=== PATIENT | female | born 1980 | race Caucasian/White ===

== ENCOUNTER 2019-01-02 09:04 | Emergency (ER) | payer MEDICAID ==
[~2019-01-02] VITALS: Ht 157.5 cm; Wt 79.7 kg
[~2019-01-02 09:04] MED LIST: PREN-39 PO
[2019-01-02 09:07] VITALS: BP 118/63; PULSE 68; RESP 18; Ht 157.5 cm; Wt 79.7 kg
[2019-01-02] MEDS ORDERED: KETOROLAC 60 MG INJ IM STA (09:23)
[2019-01-02] MEDS ORDERED: HYDR-4011 PO (10:45)
[2019-01-02] MEDS ORDERED: NAPR-985 PO (10:45)
--- NOTE | 2019-01-02 13:03 | ERD ---
ER Documentation Chief Complaint Chief Complaint NECK PAIN HPI 38-year-old female presenting with neck pain after and back pain. Patient slipped and fell yesterday. She has not taken medications for symptoms. She denies any numbness or tingling. She denies denies head injury or loss of conscious. Denies vomiting. Denies medical problems. NKDA. Surgical history . Social history denies ROS All systems reviewed and are negative except as per history of present illness. Medications Home Meds Active Scripts Naproxen* (Naprosyn*) 500 Mg Tablet, 500 MG PO BID PRN for PAIN AND/OR INFLAMMATION, #30 TAB Prov:MARYAM ARNDT PA-C 01/02/19 Hydrocodone/Acetaminophen ([place] 5-325 Tablet) 1 Each Tablet, 1 TAB PO Q6H PRN for PAIN, #7 TAB Prov:MARYAM ARNDT PA-C 01/02/19 Reported Medications Vits W-Ca,Fe,Fa(<1MG) ( Vitamins) 1 Tab Tablet, 1 TAB PO DAILY 08/30/14 Allergies Allergies: Coded Allergies: No Known Drug Allergies (Verified Allergy, Mild, 01/02/19) PMhx/Soc Medical and Surgical Hx: pt denies Medical Hx History of Surgery: Yes (C/S) Anesthesia Reaction: No Hx Neurological Disorder: No Hx Respiratory Disorders: No Hx Cardiac Disorders: No Hx Psychiatric Problems: No Hx Miscellaneous Medical Probl: No Hx Alcohol Use: No Hx Substance Use: No Hx Tobacco Use: No Smoking Status: Never smoker FmHx Family History: No diabetes, No coronary disease, No other Physical Exam Vitals Vital Signs Date Temp Pulse Resp B/P (MAP) Pulse Ox O2 O2 Flow FiO2 Time Delivery Rate 01/02/19 98.2 68 18 118/63 99 09:07 (81) Physical Exam GENERAL: The patient is well-appearing, well-nourished, in no acute distress HEENT: Atraumatic. Conjunctivae are pink. Pupils equal, round, and reactive to light. There is no scleral icterus. Tympanic membranes clear bilaterally. Oropharynx clear. NECK: C-spine is soft and supple. There is no meningismus. There is no cervical lymphadenopathy. CHEST: Clear to auscultation bilaterally. There are no rales, wheezes or rhonchi. HEART: Regular rate and rhythm. No murmurs, clicks, rubs or gallops. ABDOMEN:Soft, nontender and nondistended. Good bowel sounds. No rebound or guarding. No gross peritonitis. No gross organomegaly or masses. BACK: Tender to palpation along cervical, thoracic and lumbar spine. No bony step-offs felt. SKIN: No abrasions or lacerations Results 24 hrs Laboratory Tests Test 01/02/19 09:29 POC Beta HCG, Qualitative NEGATIVE Current Medications Medications Dose Sig/Mariah Start Time Status Last (Trade) Ordered Route PRN Stop Time Admin Dose Reason Admin Ketorolac 60 mg ONCE STAT 01/02/19 DC 01/02/19 Tromethamine IM 09:23 09:34 (Toradol) 01/02/19 09:25 Procedures/MDM DIAGNOSTIC IMAGING REPORT Patient: DEEDEE NEUMANN : 1980 Age: 38 Sex: F MR #: [id number] DOS: 01/02/19922 Ordering MD: JASON ARNDT PA-C Location: [facility] Room/Bed: PROCEDURE: XR Cervical Spine. CLINICAL INDICATION: Fall. Neck pain TECHNIQUE: Three views of the cervical spine were performed. The images were reviewed on a PACS workstation. COMPARISON: None. FINDINGS: There is straightening of the normal cervical lordosis. There is no acute fracture or dislocation. The vertebral body heights and disc spaces are preserved. There is no significant paraspinal soft tissue swelling. IMPRESSION: 1. No acute fracture or traumatic subluxation. If there is high clinical suspicion for traumatic injury, further evaluation with CT should be considered. 2. Straightening of the normal cervical lordosis. DIAGNOSTIC IMAGING REPORT Patient: DEEDEE NEUMANN : 1980 Age: 38 Sex: F MR #: [id number] DOS: 01/02/19922 Ordering MD: JASON ARNDT PA-C Location: [facility] Room/Bed: PROCEDURE: XR Lumbar Spine. CLINICAL INDICATION: Fall, back pain TECHNIQUE: AP, cone-down lateral, and lateral views of the lumbar spine were obtained. COMPARISON: None. FINDINGS: No fracture is identified. The vertebral bodies are maintained in height. There is preservation of the lordosis of the lumbar spine. Alignment is intact. Mild anterior osteophytes/calcifications are seen at the L1-2 level. There is mild - moderate disc space narrowing posteriorly at L5-S1 with facet arthropathy also seen at this level. IMPRESSION: No fracture identified. Lumbar spondylosis/degenerative enthesopathy, more pronounced at L5-S1 as described above. DIAGNOSTIC IMAGING REPORT Patient: DEEDEE NEUMANN : 1980 Age: 38 Sex: F [id number] DOS: 01/02/19 0923 Ordering MD: JASON ARNDT PA-C Location: [facility] Room/Bed: PROCEDURE: Thoracic spine series CLINICAL INDICATION: Trauma TECHNIQUE: AP, lateral and swimmers views were obtained of thoracic spine. COMPARISON: None FINDINGS: Minimal S-shaped thoracic scoliosis. No evidence of acute fractures or subluxations. The bony mineralization is normal. No focal bony blastic or lytic lesions. Minimal degenerative enthesopathy throughout the thoracic spine. Posterior elements appear intact. No paraspinous masses. IMPRESSION: Minimal degenerative enthesopathy without acute fractures or subluxations. MDM: 38-year-old female complaining of pain to her back. I have low suspicion for acute fracture dislocation. I have low suspicion for cauda equina, I have low suspicion for endocrine hemorrhage or neuro deficit. Patient is discharged with supportive medications and likely sustained contusion secondary to mechanism. Patient is told symptoms change or worsen to return immediately to the ER. All questions answered at discharge Departure Diagnosis: Primary Impression: Neck pain Condition: Stable Patient Instructions: Muscle Spasm Referrals: [facility] YOU HAVE RECEIVED A MEDICAL SCREENING EXAM AND THE RESULTS INDICATE THAT YOU DO NOT HAVE A CONDITION THAT REQUIRES URGENT TREATMENT IN THE EMERGENCY DEPARTMENT. FURTHER EVALUATION AND TREATMENT OF YOUR CONDITION CAN WAIT UNTIL YOU ARE SEEN IN YOUR DOCTORS OFFICE WITHIN THE NEXT 1-2 DAYS. IT IS YOUR RESPONSIBILITY TO MAKE AN APPOINTMENT FOR FOLOW-UP CARE. IF YOU HAVE A PRIMARY DOCTOR --you should call your primary doctor and schedule an appointment IF YOU DO NOT HAVE A PRIMARY DOCTOR YOU CAN CALL OUR PHYSICIAN REFERRAL HOTLINE AT IF YOU CAN NOT AFFORD TO SEE A PHYSICIAN YOU CAN CHOSE FROM THE FOLLOWING [facility] [address] [facility]. [facility] [address] [facility] [facility] [address] [facility] [address] [facility] [address] [facility]. [facility] [address] Additional Instructions: FOLLOW UP WITH YOUR PRIMARY CARE PHYSICIAN TOMORROW.Return to this facility if you are not improving as expected. MARYAM ARNDT PA-C Jan 02, 2019 13:03
== END 2019-01-02 11:05 | disposition home or self-care (01) ==
LOC: FTE 09:04
DX: M54.2 Cervicalgia (principal)
CPT/HCPCS: 72040; 72072; 72100; 81025; 96372; J1885; Z7502